=== PATIENT | male | born 1960 | race Two or more races ===

== ENCOUNTER 2024-11-17 09:11 | Outpatient (CLI) | payer OTHER ==
[2024-11-17 10:22] LABS: Hematocrit 45.9 % (41.0-53.0); Hemoglobin 15.8 g/dL (13.5-17.5); Mean Corpuscular Hemoglobin 32.0 pg (28.0-32.0); Mean Corpuscular Volume 92.8 fL (80.0-100.0); Nucleated Red Blood Cells % 0.0 %
[2024-11-17 10:35] LABS: Alanine Aminotransferase 15 U/L (7-40); Alkaline Phosphatase 70 U/L (46-116); Anion Gap 6 (5-15); BUN/Creatinine Ratio 13.3 (10.0-20.0); Blood Urea Nitrogen 12 mg/dL (9-23); Calcium 9.5 mg/dL (8.7-10.4); Carbon Dioxide 27 mmol/L (20-31); Chloride 106 mmol/L (98-107); Glucose 95 mg/dL (74-106); Potassium 4.5 mmol/L (3.5-5.1); Sodium 139 mmol/L (136-145); Total Protein 7.5 g/dL (5.7-8.2); Triglycerides 97 mg/dL (< 150)
[2024-11-17 10:36] LABS: Ferritin 68.4 ng/mL (22-322)
[2024-11-17 10:37] LABS: Bilirubin, Total 0.7 mg/dL (0.2-1.0); Cholesterol 194 mg/dL (< 200)
[2024-11-17 10:39] LABS: Albumin 4.8 g/dL (3.2-4.8); HDL Cholesterol 67 mg/dL (40-59)
[2024-11-18 11:40] LABS: Hepatitis A Total Antibody Negative (Negative); Hepatitis B Surface Antigen Negative (Negative); Hepatitis C Antibody Negative (Negative)
== END 2024-11-17 17:00 | disposition home or self-care (01) ==
LOC: LAB 09:11
PROVIDERS: ATTEND Licensed Practical Nurse
DX: E55.9 Vitamin D deficiency, unspecified (principal); Z13.29 Encounter for screening for other suspected endocrine disorder; Z13.1 Encounter for screening for diabetes mellitus; Z13.6 Encounter for screening for cardiovascular disorders; Z13.220 Encounter for screening for lipoid disorders; Z00.01 Encounter for general adult medical examination with abnormal findings
CPT/HCPCS: 36415; 80053; 80061; 82043; 82274; 82306; 82607; 82728; 82746; 83036; 84443; 85025; 86704; 86706; 86708; 86803; 87340